=== PATIENT | male | born 1955 | race Caucasian/White ===

== ENCOUNTER 2017-01-18 20:30 | Outpatient (CLI) | payer BC | END 2017-01-18 20:31 | disposition home or self-care (01) | LOC: SLEEPLAB 20:30 | PROVIDERS: ATTEND Internal Medicine | DX: G47.33 Obstructive sleep apnea (adult) (pediatric) (principal); I25.10 Atherosclerotic heart disease of native coronary artery without angina pectoris; K21.9 Gastro-esophageal reflux disease without esophagitis; R51 Headache; R06.81 Apnea, not elsewhere classified; R35.1 Nocturia; I10 Essential (primary) hypertension | CPT/HCPCS: 95811 ==

== ENCOUNTER 2017-07-13 13:32 | Outpatient (CLI) | payer BC ==
[~2017-07-13 13:32] MED LIST: Gadobenate Dimeglumine 529 MG/1 ML (20ML VIAL) ONE
--- NOTE | 2017-07-13 15:17 | MRI ---
MRI LUMBAR SPINE WITH AND WITHOUT CONTRAST: Date: 07/13/17 HISTORY: Neurogenic claudication, G45.0. COMPARISON: None. FINDINGS: There is a background of congenitally shortened pedicles. The aortic contour is nonaneurysmal. No ret roperitoneal adenopathy. Low grade paraspinal musculature atrophy at the level of L4 and l5. No hydronephrosis. Conus medullaris terminates at the inferior end plate of L1. There are Modic Type II changes of the s uperior end plate of L5 and inferior end plate of L4. There is a background of congenitally shortened pedicles. Levels are as follows: T12-L1: There is superior L1 end plate disc herniation. Disc is normal. There is a synovial cyst from the lef t facet joint impinging upon the dorsal thecal sac. This causes narrowing of the spinal canal to appr oximately 8.0 mm. There is also some encroachment upon the left neural foramina with mild narrowing. L2-3: Mild disc desiccation. Circumferential disc bulge. Severe facet arthropathy. Extensive ligamentum fla vum hypertrophy. Spinal canal is abnormally narrowed, approximately 5.0 mm. There is moderate left an d right-sided neural foraminal narrowing. L3-4: Disc desiccation. There is a circumferential disc bulge. Severe facet arthrosis. Spinal canal is narr owed to approximately 3.0 mm. Moderate left and right-sided neural foraminal narrowing. L4-5: There is a posterior disc extrusion with superior migration of disc. The spinal canal is narrowed, un carlos 4.0 mm. Moderate to severe facet arthrosis. Moderate bilateral neural foraminal narrowing. L5-S1: Posterior disc osteophyte complex. Moderate facet arthrosis. Moderate bilateral neural foraminal narr owing. 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 POS: [facility]
== END 2017-07-13 13:33 | disposition home or self-care (01) ==
LOC: TBSIIMAG 13:32
PROVIDERS: ATTEND Neurological Surgery
DX: M48.062 Spinal stenosis, lumbar region with neurogenic claudication (principal); M51.26 Other intervertebral disc displacement, lumbar region; M71.38 Other bursal cyst, other site; M25.78 Osteophyte, vertebrae
CPT/HCPCS: 72158; 82565; A9579

== ENCOUNTER 2017-08-04 12:06 | Outpatient (CLI) | payer BC ==
[2017-08-04 13:05] LABS: Hemoglobin 13.8 g/dL (14.0-18.0); Mean Corpuscular HGB CONC 33.7 g/dL (32.0-36.0); Mean Corpuscular Hemoglobin 29.8 pg (27.0-31.0); Mean Corpuscular Volume 88.6 fL (78.0-98.0); Mean Platelet Volume 6.1 fL (7.4-10.4); Platelet Count 211 thou/uL (130-400); RBC Distribution Width 12.5 % (11.5-14.5); Red Blood Cell (RBC) Count 4.62 mill/uL (4.70-6.10); White Blood Cell (WBC) Count 5.7 thou/uL (4.8-10.8)
[2017-08-04 13:43] LABS: Anion Gap 13 mmol/L (10-20); BUN (Urea Nitrogen) 12 mg/dL (8.4-25.7); Calc. Creatinine Clearance 0 mL/min (70-130); Calcium 9.3 mg/dL (7.8-10.44); Carbon Dioxide 26 mmol/L (23-31); Chloride 105 mmol/L (98-107); Estimated GFR-MDRD 73; Glucose 98 mg/dL (80-115); Potassium 4.5 mmol/L (3.5-5.1); Sodium 139 mmol/L (136-145)
== END 2017-08-04 12:07 | disposition home or self-care (01) ==
LOC: LABBT 12:06
PROVIDERS: ATTEND Neurological Surgery
DX: Z01.812 Encounter for preprocedural laboratory examination (principal); M48.062 Spinal stenosis, lumbar region with neurogenic claudication
CPT/HCPCS: 80048; 85027

== ENCOUNTER 2017-08-11 07:34 | Day surgery (SDC) | payer BC ==
[2017-08-04 12:28] VITALS: BMI 33.7
[2017-08-11] MEDS ORDERED: Clindamycin/D5W 900 mg/50 ml Premix Bag ONE (08:51)
[2017-08-11] MEDS ORDERED: Levofloxacin 500 mg/D5W 100 ml Premix Bag ONE (08:52)
[2017-08-11] MEDS ORDERED: Fentanyl 100 MCG/2 ML VIAL ONE ×4 (08:57→11:43)
[2017-08-11] MEDS ORDERED: Dexamethasone 20 MG/5 ML VIAL ONE (10:16)
[2017-08-11] MEDS ORDERED: PROPOFOL 200 MG/20 ML VIAL ONE (10:16)
[2017-08-11] MEDS ORDERED: PHENYLEPHRINE-NS 100 MCG/ML 10 ML SYRINGE ONE (10:16)
[2017-08-11] MEDS ORDERED: Lidocaine 1% PF 5 ML VIAL ONE (10:16)
[2017-08-11] MEDS ORDERED: ePHEDrine/0.9% NaCl/PF SYRINGE 50 mg/10 ml ONE (10:16)
[2017-08-11] MEDS ORDERED: Glycopyrrolate 0.2 MG/ML 5 ML SYRINGE ONE (10:16)
[2017-08-11] MEDS ORDERED: Ondansetron HCl/PF 4 MG/2 ML Vial ONE (10:16)
[2017-08-11] MEDS ORDERED: Ketorolac Tromethamine 30 MG/ML VIAL ONE (10:16)
--- NOTE | 2017-08-11 11:45 | OP ---
DATE OF PROCEDURE: 08/11/2017 SURGEON: Bimal Weaver M.D. TEACHER LEARNING DISABLED: Amador Veliz PROCEDURE: L3-L5 laminectomy. PROCEDURE IN DETAIL: The patient was brought to the operating room, intubated. He was rolled in the prone position on gel-filled chest rolls. Incision made exposing L3-L5 and our level was confirmed by x-ray. We performed complete L5, complete L4, and inferior L3 laminectomies, completely decompres sing the neural elements. The wound was extensively irrigated, immaculate hemostasis was secured. V ancomycin powder was applied and the wound was closed in anatomic layers.
[2017-08-11] MEDS ORDERED: HYDROcodone/Acetaminophen 5/325 mg Tablet ONE (13:51)
== END 2017-08-11 14:25 | disposition home or self-care (01) ==
LOC: SDC 07:34
PROVIDERS: ATTEND Neurological Surgery
PROC: 00NY0ZZ Release Lumbar Spinal Cord, Open Approach (ICD-10-PCS; principal; 2017-08-11)
DX: M48.062 Spinal stenosis, lumbar region with neurogenic claudication (principal); G45.0 Vertebro-basilar artery syndrome; Z88.0 Allergy status to penicillin
CPT/HCPCS: 76001; 96374; J0131; J1100; J1885; J1956; J2001; J2405; J2704; J3010; J3370; J3490

== ENCOUNTER 2017-08-11 22:56 | Emergency (ER) | payer BC | END 2017-08-12 00:04 | disposition home or self-care (01) | LOC: SCSER 22:56 | DX: N40.1 Benign prostatic hyperplasia with lower urinary tract symptoms (principal); R33.8 Other retention of urine; I10 Essential (primary) hypertension; F32.9 Major depressive disorder, single episode, unspecified; Z79.899 Other long term (current) drug therapy; Z79.82 Long term (current) use of aspirin | CPT/HCPCS: 51702 ==

== ENCOUNTER 2017-08-15 11:20 | Emergency (ER) | payer BC ==
[2017-08-15 11:53] LABS: Bilirubin Negative (Negative); Blood, Urine Moderate (Negative); Clarity Clear (Clear); Glucose, Urine (Dipstick) Negative (Negative); Leukocyte Negative (Negative); Nitrite Negative (Negative); Protein, Urine (Dipstick) 100 mg/dL (Neg-Trace); Specific Gravity, Urine 1.015 (1.005-1.030); Urobilinogen 0.2 mg/dL (0.2-1.0)
[2017-08-15 12:02] LABS: WBC/HPF 0-3 HPF (0-3)
[2017-08-15 12:03] LABS: Bacteria/HPF None Seen HPF (None Seen); Squamous Epithelial None Seen HPF (0-3)
== END 2017-08-15 12:07 | disposition home or self-care (01) ==
LOC: SCSER 11:20
DX: T83.83XA Hemorrhage due to genitourinary prosthetic devices, implants and grafts, initial encounter (principal); N40.0 Benign prostatic hyperplasia without lower urinary tract symptoms; I10 Essential (primary) hypertension; F32.9 Major depressive disorder, single episode, unspecified
CPT/HCPCS: 81003; 81015; 99283

== ENCOUNTER 2018-02-02 10:34 | Day surgery (SDC) | payer BC ==
[2018-02-01 14:43] VITALS: BMI 35.6
[~2018-02-02 10:34] MED LIST changes: -Gadobenate Dimeglumine 529 MG/1 ML (20ML VIAL) ONE; +PROPOFOL 200 MG/20 ML VIAL ONE
[2018-02-02] MEDS ORDERED: Fentanyl 100 MCG/2 ML VIAL ONE (11:25)
[2018-02-02] MEDS ORDERED: PROPOFOL 40 ML ONE (11:25)
[2018-02-02 11:31] LABS: Hemoglobin 13.8 g/dL (14.0-18.0); Mean Corpuscular HGB CONC 32.9 g/dL (32.0-36.0); Mean Corpuscular Hemoglobin 29.4 pg (27.0-31.0); Mean Corpuscular Volume 89.3 fL (78.0-98.0); Mean Platelet Volume 7.2 fL (7.4-10.4); Platelet Count 187 thou/uL (130-400); RBC Distribution Width 12.9 % (11.5-14.5); Red Blood Cell (RBC) Count 4.69 mill/uL (4.70-6.10); White Blood Cell (WBC) Count 3.6 thou/uL (4.8-10.8)
[2018-02-02] MEDS ORDERED: Lidocaine 1% w/Epinephrine 1:200K 30 ML VIAL ONE (11:41)
[2018-02-02] MEDS ORDERED: Clindamycin/D5W 600 mg/50 ml Premix Bag ONE (11:53)
--- NOTE | 2018-02-02 12:36 | EKG ---
Test Reason : PREOP Blood Pressure : / mmHG Vent. Rate : 053 BPM Atrial Rate : 053 BPM P-R Int : 198 ms QRS Dur : 104 ms QT Int : 434 ms P-R-T Axes : 044 -13 024 degrees QTc Int : 407 ms Sinus bradycardia Minimal voltage criteria for LVH, may be normal variant Borderline ECG When compared with ECG of 20-JAN-2013 07:50, No significant change was found Confirmed by ANDRES REYNOLDS ([id number]) on 02/02/2018 12:36:32 PM Referred By: CJ Confirmed By:ANDRES REYNOLDS
--- NOTE | 2018-02-04 11:27 | OP ---
DATE OF PROCEDURE: 02/02/2018 PREOPERATIVE DIAGNOSIS: Right carpal tunnel syndrome. POSTOPERATIVE DIAGNOSIS: Right carpal tunnel syndrome. PROCEDURE PERFORMED: Open carpal tunnel release. ANESTHESIA:. The patient received a TIVA with a total of 16 mL of 1% lidocaine with epinephrine.. ESTIMATED BLOOD LOSS: Less than 10 mL. TOURNIQUET TIME: 4 minutes at 250 mmHg. ANTIBIOTICS: Clindamycin 600 mg. COMPLICATIONS: None. INDICATIONS FOR PROCEDURE: Mr. Mix is a 62-year-old male, presented with numbness and tingling in his hands since greater than a year. The patient is a carmona. The patient had nerve conduction showing carpal tunnel syndrome, some mild changes in his elbow, but he is not symptomatic or have radicular symptoms with tinels at the cubital tunnel. The patient had pain on the radial surface of his hand. The patient did not have signs or symptoms of elbow issues. I discussed with the patient risks and benefits of right carpal tunnel release to include pain, scar, bleeding, infection, damage to vital structures, decreased range of motion and strength, continued pain despite surgical intervention. The patient understood the risks and benefits and elected to proceed. DESCRIPTION OF PROCEDURE: A time-out was performed designating the patient's right upper extremity as the operative site, based on site, consent, and markings. After time-out, the patient's right upper extremity was prepped and draped in the sterile fashion. Tourniquet was brought up for 4 minutes. I made an incision proximal to Soria's cardinal line in line with the fourth ray down through skin, down through the palmar fascia, down through the patient's palmaris brevis and transverse carpal ligament, proximally dissected and it showed it was completely released, let the tourniquet down, controlled bleeding. I injected a wheal in a linear injection about 8 mL of lidocaine with epi into the incision line before starting the procedure. I injected another 8 mL into the hand afterwards. We then washed and placed the patient's soft tissue dressing. The patient will follow up with me in about 10 to 14 days. He will keep the dressing on for 3 days. Keep it covered until he follows up with me. Job ID: [id number] [facility]
== END 2018-02-02 13:45 | disposition home or self-care (01) ==
LOC: SDC 10:34
PROVIDERS: ATTEND Orthopaedic Surgery
PROC: 01N50ZZ Release Median Nerve, Open Approach (ICD-10-PCS; principal; 2018-02-02)
DX: G56.01 Carpal tunnel syndrome, right upper limb (principal); I25.10 Atherosclerotic heart disease of native coronary artery without angina pectoris; I25.2 Old myocardial infarction; F32.9 Major depressive disorder, single episode, unspecified; G47.33 Obstructive sleep apnea (adult) (pediatric); Z87.891 Personal history of nicotine dependence; Z79.899 Other long term (current) drug therapy; Z79.82 Long term (current) use of aspirin
CPT/HCPCS: 85027; 93005; 93010; J2704; J3010; J3490

== ENCOUNTER 2018-09-05 09:26 | Outpatient (CLI) | payer MEDICARE ==
[~2018-09-05 09:26] MED LIST changes: +Iopamidol 370 76% 100 ML VIAL ONE; -PROPOFOL 200 MG/20 ML VIAL ONE
--- NOTE | 2018-09-05 11:46 | CT ---
CT NECK SOFT TISSUES WITH COTNRAST: DATE: 09/05/2018. HISTORY: A 63-year-old male with left neck mass. Dysphagia. FINDINGS: The left palatine tonsil is enlarged, measuring approximately 3 x 2.5 x 3.5 cm. At the medial aspect of this tonsillar mass, there is an air-filled cavity that communicates with the oropharyngeal airwa y. There is a heterogeneously enhancing large left level IIA lymph node measuring approximately 3.7 x 2. 4 x 3.0 cm. It is mildly lobular but well circumscribed. Located posterior and superior to that, th ere is another pathologic left level II lymph node measuring 2 x 1.6 x 1.7 cm. One of the enlarged le bradley lymph nodes on the left mildly anteriorly displaces the left submandibular gland. No other abnor mality is identified involving the bilateral submandibular, parapharyngeal, crushed stone grader, sublingual, c arotid, posterior cervical, and retropharyngeal, spaces. The bilateral parotid glands are slightly p rominent and slightly heterogeneous in attenuation (nonspecific, but perhaps representing early gutierrez es of Sjogren's disease). No discrete parotid mass. No thyromegaly. Normal larynx. IMPRESSION: 1. 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 2. TNM staging is at least T2 and N2B (presumably M0), which would make this at least stage 4A. POS: [facility]
== END 2018-09-05 09:27 | disposition home or self-care (01) ==
LOC: SCSCT 09:26
PROVIDERS: ATTEND Specialist
DX: R22.1 Localized swelling, mass and lump, neck (principal); C09.9 Malignant neoplasm of tonsil, unspecified
CPT/HCPCS: 70491; Q9967

== ENCOUNTER 2018-10-09 12:17 | Outpatient (CLI) | payer MEDICARE, BC ==
--- NOTE | 2018-10-09 15:40 | PET ---
Radionucleotide PET scan with CT attenuation correction HISTORY: Squamous cell cancer head and neck. Initial staging. FINDINGS: Physiologic uptake of radiotracer throughout the enteric system and along each urinary trac t. Muscular uptake about the left shoulder. Scattered mild degenerative changes. Markedly increased radiotracer uptake associated with the left palatine tonsil shows maximum SUV of 1 4.8. The large left level 2 lymph nodes described on recent CT neck also show markedly increased radiotrac er uptake. Maximum SUV 20.2. No distant areas of hypermetabolic activity are apparent. Nondiagnostic CT attenuation correction images show calcification of the arteries. Bovine origin of t he great vessels at the aortic arch. Degenerative changes lumbar spine. 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 No evid ence of distant metastases. Atherosclerosis.
== END 2018-10-09 12:18 | disposition home or self-care (01) ==
LOC: PET 12:17
PROVIDERS: ATTEND Radiology Radiation Oncology
DX: C09.1 Malignant neoplasm of tonsillar pillar (anterior) (posterior) (principal); I70.90 Unspecified atherosclerosis
CPT/HCPCS: 78815; A9552

== ENCOUNTER 2018-10-24 11:08 | Day surgery (SDC) | payer MEDICARE, BC ==
[2018-10-23 14:28] VITALS: BMI 33.6
[2018-10-24] MEDS ORDERED: PROPOFOL 200 MG/20 ML VIAL ONE (12:28)
[2018-10-24] MEDS ORDERED: Lidocaine 1% PF 5 ML VIAL ONE (12:28)
--- NOTE | 2018-10-24 13:41 | OP ---
DATE OF PROCEDURE: 10/24/2018 PROCEDURES PERFORMED: Esophagogastroduodenoscopy with percutaneous endoscopic gastrostomy tube placement. PREMEDICATION: Given by Anesthesiology Department. PREPROCEDURE DIAGNOSES: 1. Tonsillar cancer. 2. Dysphagia. POSTPROCEDURE DIAGNOSES: 1. Normal upper endoscopy. 2. Status post placement of 20-Stateless gastrostomy feeding tube. DESCRIPTION OF PROCEDURE: Written consents were obtained prior to procedure. After adequate sedation, the forward-viewing endoscope was advanced down the stomach under direct vision to the second portion of duodenum. The duodenum was normal. The pylorus was patent. The gastric antrum, body, fundus, and cardia all appeared normal. The esophagus appeared normal. The stomach was fully insufflated. The site was selected along the medial left upper quadrant with good transillumination and ballottement. The area was cleaned with Betadine and anesthetized with 1% xylocaine. A small incision was made to the skin. The trocar was introduced in the gastric lumen with a guidewire feeding through and grasped with a snare and brought out along with the endoscope. The 20-Stateless G-tube was then affixed to the guidewire and was then pulled back down to the gastric lumen. The external latch was then firmly secured. The repeat endoscopy confirmed good placement. There was no bleeding complication noted. The patient tolerated the procedure well. ASSESSMENT: Status post 20-Stateless G-tube placement. PLAN: 1. The patient can be discharged home. 2. Followup in office tomorrow for a gastrostomy tube check. Job ID: [id number]
== END 2018-10-24 14:40 | disposition home or self-care (01) ==
LOC: SDC 11:08
PROVIDERS: ATTEND Internal Medicine Gastroenterology
PROC: 0DH63UZ Insertion of Feeding Device into Stomach, Percutaneous Approach (ICD-10-PCS; principal; 2018-10-24)
DX: C09.9 Malignant neoplasm of tonsil, unspecified (principal); I10 Essential (primary) hypertension; M19.90 Unspecified osteoarthritis, unspecified site; K21.9 Gastro-esophageal reflux disease without esophagitis; G47.30 Sleep apnea, unspecified; Z79.899 Other long term (current) drug therapy; Z88.0 Allergy status to penicillin; Z95.5 Presence of coronary angioplasty implant and graft
CPT/HCPCS: 77386; J0690; J2001; J2704

== ENCOUNTER 2018-11-03 23:36 | Emergency (ER) | payer MEDICARE, BC ==
[2018-11-04] MEDS ORDERED: Lidocaine Viscous Sol 2% 15 ml UD Cup ONE (00:53)
== END 2018-11-04 00:58 | disposition home or self-care (01) ==
LOC: ERS 23:36
DX: B37.81 Candidal esophagitis (principal); L03.311 Cellulitis of abdominal wall; I25.2 Old myocardial infarction; I10 Essential (primary) hypertension; I25.10 Atherosclerotic heart disease of native coronary artery without angina pectoris; F32.9 Major depressive disorder, single episode, unspecified
CPT/HCPCS: 99283

== ENCOUNTER 2019-03-26 10:55 | Outpatient (CLI) | payer MEDICARE, BC ==
--- NOTE | 2019-03-26 13:36 | PET ---
PET CT: HISTORY: A 63-year-old male with squamous cell carcinoma of the left tonsil. Exam requested for restaging fol lowing radiation therapy to the head and neck in November 2018. TECHNIQUE: PET scanning with CT attenuation correction was performed from the vertex through the proximal thighs following the intravenous administration of 11.5 mCi [id number] in the right hand. COMPARISON: 10/09/2018. FINDINGS: The previously noted areas of abnormal FDG localization in the left palatine tonsil and left level II cervical lymph nodes are no longer seen on the current exam. No opal hypermetabolism is seen in the neck, chest, axillae, abdomen, or pelvis. No hypermetabolic pulmonary nodules, liver, adrenal, or skeletal lesions are seen. There is physiologic activity in th e brain and GI/ tracts. No pleural effusions or ascites are seen. IMPRESSION: Excellent response to therapy. No evidence of metastatic disease. POS: [facility]
== END 2019-03-26 10:56 | disposition home or self-care (01) ==
LOC: PET 10:55
PROVIDERS: ATTEND Radiology Radiation Oncology
DX: C09.1 Malignant neoplasm of tonsillar pillar (anterior) (posterior) (principal)
CPT/HCPCS: 78815; A9552

== ENCOUNTER 2019-10-08 07:42 | Outpatient (CLI) | payer MEDICARE, BC, OTHER ==
[2019-10-08 10:48] LABS: #Basophils 0.1 thou/uL (0.0-0.2); #Lymphocytes 0.3 thou/uL (1.20-3.40); #Monocytes 0.3 thou/uL (0.11-0.59); #Neutrophils 2.6 thou/uL (1.40-6.50); %Basophils 1.6 % (0.0-1.0); %Eosinophils 0.9 % (0.0-10.0); %Lymphocytes 8.9 % (21.0-51.0); %Monocytes 9.3 % (0.0-10.0); %Neutrophils 79.2 % (42.0-75.0); Hemoglobin 10.9 g/dL (14.0-18.0); Mean Corpuscular HGB CONC 34.5 g/dL (32.0-36.0); Mean Corpuscular Hemoglobin 31.5 pg (27.0-31.0); Mean Corpuscular Volume 91.3 fL (78.0-98.0); Mean Platelet Volume 6.5 fL (7.4-10.4); Platelet Count 152 thou/uL (130-400); RBC Distribution Width 12.2 % (11.5-14.5); Red Blood Cell (RBC) Count 3.47 mill/uL (4.70-6.10); White Blood Cell (WBC) Count 3.3 thou/uL (4.8-10.8)
[2019-10-08 11:49] LABS: Anion Gap 13 mmol/L (10-20); BUN (Urea Nitrogen) 10 mg/dL (8.4-25.7); Calc. Creatinine Clearance 0 mL/min (70-130); Calcium 8.7 mg/dL (7.8-10.44); Carbon Dioxide 23 mmol/L (23-31); Chloride 92 mmol/L (98-107); Estimated GFR-MDRD 63; Glucose 106 mg/dL (80-115); Potassium 4.6 mmol/L (3.5-5.1); Sodium 123 mmol/L (136-145)
[2019-10-08 18:24] LABS: SARS-CoV-2 MS2 Positive; SARS-CoV-2 N Gene Negative; SARS-CoV-2 S Gene Negative; SARS-CoV-2 by NAA Not Detected (NotDetected); SARS-CoV-2 orf1ab Negative
== END 2019-10-08 07:43 | disposition home or self-care (01) ==
LOC: LABBT 07:42
PROVIDERS: ATTEND Specialist
DX: Z01.812 Encounter for preprocedural laboratory examination (principal); Z20.828 Contact with and (suspected) exposure to other viral communicable diseases; R10.31 Right lower quadrant pain
CPT/HCPCS: 80048; 85025; U0003; 87635

== ENCOUNTER 2019-12-06 12:40 | Outpatient (CLI) | payer MEDICARE, BC | END 2019-12-06 12:41 | disposition home or self-care (01) | LOC: SCSCT 12:40 | PROVIDERS: ATTEND Urology | DX: N40.1 Benign prostatic hyperplasia with lower urinary tract symptoms (principal); R31.29 Other microscopic hematuria | CPT/HCPCS: 74178 ==

== ENCOUNTER 2020-01-07 08:26 | Outpatient (CLI) | payer MEDICARE, BC ==
[2020-01-07 12:21] LABS: #Monocytes 0.3 10x3/uL (0.0-1.1); #Neutrophils 2.2 10x3/uL (1.5-8.4); %Basophils 0.4 % (0.0-2.0); %Eosinophils 1.1 % (0.0-6.0); %Lymphocytes 8.2 % (18.0-47.0); %Monocytes 10.3 % (0.0-10.0); %Neutrophils 79.6 % (40.0-75.0); Mean Corpuscular HGB CONC 34.2 G/DL (32.0-36.0); Mean Corpuscular Hemoglobin 31.3 PG (27.0-33.0); Mean Corpuscular Volume 91.5 fl (80.0-100.0); Mean Platelet Volume 8.7 fl (7.4-10.4); Platelet Count 155 10x3/uL (130-400); RBC Distribution Width 12.5 % (11.5-14.5); Red Blood Cell (RBC) Count 3.52 10x6/uL (4.40-5.80); White Blood Cell (WBC) Count 2.8 10x3/uL (4.5-11.0)
[2020-01-07 12:38] LABS: Anion Gap 13 mmol/L (10-20); BUN (Urea Nitrogen) 9 mg/dL (8.4-25.7); Calc. Creatinine Clearance 0 mL/min (70-130); Calcium 8.3 mg/dL (7.8-10.44); Carbon Dioxide 25 mmol/L (23-31); Chloride 97 mmol/L (98-107); Estimated GFR-MDRD 66; Glucose 97 mg/dL (80-115); Potassium 3.9 mmol/L (3.5-5.1); Sodium 131 mmol/L (136-145)
[2020-01-07 17:15] LABS: SARS-CoV-2 MS2 Positive; SARS-CoV-2 N Gene Negative; SARS-CoV-2 S Gene Negative; SARS-CoV-2 by NAA Not Detected (NotDetected); SARS-CoV-2 orf1ab Negative
== END 2020-01-07 08:27 | disposition home or self-care (01) ==
LOC: LABBT 08:26
PROVIDERS: ATTEND Specialist
DX: Z01.812 Encounter for preprocedural laboratory examination (principal); Z20.828 Contact with and (suspected) exposure to other viral communicable diseases; K40.90 Unilateral inguinal hernia, without obstruction or gangrene, not specified as recurrent
CPT/HCPCS: 80048; 85025; U0003; 87635

== ENCOUNTER 2020-01-10 06:08 | Day surgery (SDC) | payer MEDICARE, BC ==
[2020-01-07 13:30] VITALS: BMI 23.6
--- NOTE | 2020-01-08 15:03 | HP ---
HISTORY OF PRESENT ILLNESS: Jessee Mix is a 64-year-old male, with a right inguinal hernia, scheduled for repair, was found to be hyponatremic and surgery was postponed. Since that time, he has undergone CAT scan abdomen, pelvis, chest, chest x-ray, cystoscopy by Urology, seen by Dr. Mackay and Dr. Bourgeois. Malignant workup was negative. Dr. Bourgeois has seen for his hyponatremia and that is improved. His renal function, however, is normal. He is followed by Dr. Iglesias. Dr. Iglesias has seen him and said that he is cleared for surgery without further intervention. Echocardiogram is normal. He had been previously cleared for surgery, but again postponed because of the hyponatremia. Echocardiogram was normal with normal ejection fraction, ventricular function without any valvular disorders. He had previous cath that is unremarkable with minimal disease. EKG is normal. Plan is for robot mesh repair, right inguinal hernia, outpatient. Risks and benefits, consents. SOCIAL HISTORY: Tobacco, he quit dipping in 2015. , none. Alcohol, occasional beer. Patient is a carmona. He is . ALLERGIES: PENICILLIN CHILDHOOD RECORDS. LABORATORY: Sodium on 12/11 was 124. MEDICATIONS: 1. Lisinopril. 2. Metoprolol. 3. Atorvastatin. 4. Aspirin. 5. Flomax. PAST MEDICAL HISTORY: Coronary artery disease, non-Q-wave myocardial infarction in 1998; history of tonsillar cancer with radiation and chemotherapy; history of spinal stenosis, radiculopathy; history of psoriasis; history of arthralgias; and history of sleep apnea. PAST SURGICAL HISTORY: Back surgery, eye surgery, coronary stents, July 2015, total knee replacement vasectomy , left knee surgery in [place] July 2016, recent cystoscopy, right total knee Dr. Weaver. PHYSICAL EXAMINATION: VITAL SIGNS: 179 pounds, 6 feet 1 inch, 122/75, 62, and 97.9 degrees. LUNGS: Clear to auscultation. CARDIAC: Regular rate and rhythm. No murmur or gallop. ABDOMEN: Soft. Nontender. Right inguinal hernia. EXTREMITIES: Unremarkable. ASSESSMENT AND PLAN: Right inguinal hernia. PLAN: Mesh repair, robot approach. He understands risks of infection, bleeding, reoperation, recurrence of the hernia, chronic pain, etc., and consents. Job ID: [id number]
[2020-01-10] MEDS ORDERED: Acetaminophen 500 MG TAB ONE (06:26)
[2020-01-10] MEDS ORDERED: Ketorolac Tromethamine 30 MG/ML VIAL ONE ×2 (06:26→10:31)
[2020-01-10] MEDS ORDERED: Levofloxacin 500 mg/D5W 100 ml Premix Bag ONE (06:26)
[2020-01-10] MEDS ORDERED: Lidocaine 1% w/Epinephrine 1:100K 20 ML VIAL ONE (06:42)
[2020-01-10] MEDS ORDERED: Bupivacaine 0.25% HCL 30 ML VIAL ONE (06:42)
[2020-01-10] MEDS ORDERED: Midazolam HCl 2 mg/2 ml Vial ONE (06:45)
[2020-01-10] MEDS ORDERED: Fentanyl 250 MCG/5 ML VIAL ONE (06:45)
[2020-01-10] MEDS ORDERED: Rocuronium Bromide 10 MG/ML (10ML VIAL) ONE (10:31)
[2020-01-10] MEDS ORDERED: Ondansetron PF 4 MG/2 ML Vial ONE (10:31)
[2020-01-10] MEDS ORDERED: Lidocaine 1% PF 5 ML VIAL ONE (10:31)
[2020-01-10] MEDS ORDERED: ePHEDrine 50 MG/ML VIAL ONE (10:31)
[2020-01-10] MEDS ORDERED: Atropine Sulfate 0.4 mg/1 ml Vial ONE (10:31)
[2020-01-10] MEDS ORDERED: Dexamethasone 20 MG/5 ML VIAL ONE (10:31)
[2020-01-10] MEDS ORDERED: PHENYLEPHRINE-NS 100 MCG/ML 10 ML SYRINGE ONE (10:31)
[2020-01-10] MEDS ORDERED: PROPOFOL 200 MG/20 ML VIAL ONE (10:31)
[2020-01-10] MEDS ORDERED: Glycopyrrolate 0.2 MG/ML 5 ML SYRINGE ONE (10:31)
--- NOTE | 2020-01-10 11:02 | OP ---
DATE OF PROCEDURE: 01/10/2020 PREOPERATIVE DIAGNOSIS: Right inguinal hernia. POSTOPERATIVE DIAGNOSIS: Bilateral inguinal hernias. PROCEDURE PERFORMED: Robot mesh repair, bilateral inguinal hernias. ANESTHESIA: General, local 0.5% Marcaine 30 mL mixed with 1% Xylocaine with epinephrine 20 mL, total volume used. DESCRIPTION OF PROCEDURE: The patient was taken to the operating room where, under general anesthesia, abdomen was clipped of hair, prepared with ChloraPrep, and draped in routine fashion. Tellez catheter was placed at the beginning of the procedure and removed at the end. Local anesthetic was infiltrated in the skin and subcutaneous tissue at all port sites and for ilioinguinal nerve blocks bilaterally. Left paramedian supraumbilical incision made, pneumoperitoneum to 15 mmHg was obtained with a Veress needle, replaced it with an 11 mm balloon port. Laparoscope inserted. Bilateral anterior axillary line incisions made at the same level, and 8 mm ports placed. Robot was docked after placing the patient in slight Trendelenburg. Once docked, robot inguinal hernia repair undertaken. Laparoscopic visualization revealed bilateral inguinal hernias, large right, smaller left. Incision was made to create a peritoneal flap from the anterior superior iliac spine medially bilaterally, developing the peritoneal flap by dissecting the cord structures of the hernia sac keeping them free of harm. Good hemostasis obtained with cautery. There was a very large inguinal hernia sac on the right, requiring extensive dissection, and a smaller one on the left. Once this was accomplished, good hemostasis noted, and Griffin placed in the retroperitoneum on the right. On the right and left sides, the 3D Bard max mesh, large, right and left respectively, placed on the right and left retroperitoneal spaces, secured to Alen ligament with 2-0 Vicryl after placing the mesh properly to obtain coverage of the cord structures for least 8 cm. Mesh bilaterally secured to the anterior abdominal wall lateral to the inferior epigastric vessels on both sides with 2-0 Vicryl suture. Peritoneal flap closed with continuous suture of 3-0 Stratafix. Dittmer, instruments removed. Good hemostasis noted. All counts were correct. Anterior fascia, left paramedian closed with 0 Vicryl UR needle, skin with continuous suture of 4-0 Monocryl. Job ID: [id number]
[2020-01-10] MEDS ORDERED: HYDROcodone/Acetaminophen 5/325 mg Tablet ONE ×4 (12:12→19:07)
[2020-01-10] MEDS ORDERED: Tamsulosin HCl 0.4 MG CAP ONE (13:09)
== END 2020-01-10 19:43 | disposition home or self-care (01) ==
LOC: SDC 06:08
PROVIDERS: ATTEND Specialist
PROC: 0YUA4JZ Supplement Bilateral Inguinal Region with Synthetic Substitute, Percutaneous Endoscopic Approach (ICD-10-PCS; principal; 2020-01-10)
DX: K40.20 Bilateral inguinal hernia, without obstruction or gangrene, not specified as recurrent (principal); I25.10 Atherosclerotic heart disease of native coronary artery without angina pectoris; Z79.82 Long term (current) use of aspirin; Z79.899 Other long term (current) drug therapy; Z87.891 Personal history of nicotine dependence; Z88.0 Allergy status to penicillin; Z95.5 Presence of coronary angioplasty implant and graft
CPT/HCPCS: 49650; C1781; J1885; J1956; J2250; J3010; S0020

== ENCOUNTER 2021-01-29 10:37 | Outpatient (CLI) | payer MEDICARE, BC | END 2021-01-29 10:38 | disposition home or self-care (01) | LOC: BICRAD 10:37 | PROVIDERS: ATTEND Radiology Radiation Oncology | DX: C09.1 Malignant neoplasm of tonsillar pillar (anterior) (posterior) (principal) | CPT/HCPCS: 71046 ==

== ENCOUNTER 2021-11-09 09:59 | Outpatient (CLI) | payer MEDICARE, BC | END 2021-11-09 10:00 | disposition home or self-care (01) | LOC: SCSRAD 09:59 | PROVIDERS: ATTEND Family Medicine | DX: M79.672 Pain in left foot (principal); S92.355A Nondisplaced fracture of fifth metatarsal bone, left foot, initial encounter for closed fracture; M19.072 Primary osteoarthritis, left ankle and foot ==

== ENCOUNTER 2022-04-22 13:37 | Outpatient (CLI) | payer MEDICARE, BC | END 2022-04-22 13:38 | disposition home or self-care (01) | LOC: SCSRAD 13:37 | PROVIDERS: ATTEND Radiology Radiation Oncology | DX: C09.1 Malignant neoplasm of tonsillar pillar (anterior) (posterior) (principal); E89.0 Postprocedural hypothyroidism | CPT/HCPCS: 36415; 71046; 84443 ==

== ENCOUNTER 2023-07-07 10:05 | Outpatient (CLI) | payer MEDICARE, BC | END 2023-07-07 10:06 | disposition home or self-care (01) | LOC: SCSRAD 10:05 | PROVIDERS: ATTEND Radiology Radiation Oncology | DX: C76.0 Malignant neoplasm of head, face and neck (principal); J98.4 Other disorders of lung | CPT/HCPCS: 71046 ==

== ENCOUNTER 2023-11-02 09:25 | Outpatient (CLI) | payer MEDICARE, BC | END 2023-11-02 09:26 | disposition home or self-care (01) | LOC: SCSRAD 09:25 | PROVIDERS: ATTEND Radiology Radiation Oncology | DX: C09.9 Malignant neoplasm of tonsil, unspecified (principal) | CPT/HCPCS: 71046 ==

== ENCOUNTER 2024-11-28 14:45 | Outpatient (CLI) | payer MEDICARE, BC | END 2024-11-28 14:46 | disposition home or self-care (01) | LOC: BICRAD 14:45 | PROVIDERS: ATTEND Family Medicine | DX: M54.2 Cervicalgia (principal); M47.812 Spondylosis without myelopathy or radiculopathy, cervical region | CPT/HCPCS: 72040 ==